=== PATIENT | female | born 2000 ===

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

== ENCOUNTER 2021-12-30 11:25 | Emergency (ER) | payer OTHER ==
[~2021-12-30] VITALS: Ht 160 cm; Wt 45.4 kg
[~2021-12-30 11:25] MED LIST changes: +CEFUROXIME250 MG PO; +LEVSIN/SL0.125 MG SL; +PEPCID40 MG PO; +ZOFRAN ODT4 MG PO
== END 2021-12-30 15:34 | disposition home or self-care (01) ==
LOC: ER 11:25
DX: U07.1 COVID-19 (principal)